=== PATIENT | female | born 1955 | race Caucasian/White ===

== ENCOUNTER 2017-10-14 13:29 | Outpatient (CLI) | payer OTHER | END 2017-10-14 13:30 | disposition home or self-care (01) | LOC: BICMAMMO 13:29 | PROVIDERS: ATTEND Obstetrics & Gynecology | DX: Z12.31 Encounter for screening mammogram for malignant neoplasm of breast (principal); N64.89 Other specified disorders of breast | CPT/HCPCS: 77063; 77067 ==

== ENCOUNTER → 2017-10-21 | Day surgery (SDC) | payer OTHER | LOC: BICULT 10:45 | PROVIDERS: ATTEND Obstetrics & Gynecology | DX: N60.02 Solitary cyst of left breast (principal); Z88.0 Allergy status to penicillin; Z88.1 Allergy status to other antibiotic agents | CPT/HCPCS: G0206-LT; G0279 ==

== ENCOUNTER 2018-10-06 12:54 | Outpatient (CLI) | payer OTHER ==
--- NOTE | 2018-10-06 15:19 | ULT ---
LEFT BREAST ULTRASOUND: COMPARISON: Mammogram 10/06/2018 and 10/21/2017. HISTORY: Tenderness in the lower outer quadrant of the left breast. TECHNIQUE: Multiplanar, wilson scale, and color Doppler images were obtained in a targeted ultrasound of the left breast. FINDINGS: There are numerous small anechoic cysts in the left breast. The largest measures approximately 5 mm in greatest dimension. No suspicious shadowing or suspicious mass is identified. IMPRESSION: BIRADS category 2 - benign findings. Annual screening mammography is recommended. POS: MATHEUS
== END 2018-10-06 12:55 | disposition home or self-care (01) ==
LOC: BICMAMMO 12:54
PROVIDERS: ATTEND Family Medicine
DX: N64.4 Mastodynia (principal)
CPT/HCPCS: 77066; G0279

== ENCOUNTER 2020-11-01 09:36 | Outpatient (CLI) | payer OTHER ==
--- NOTE | 2020-11-01 10:18 | ULT ---
Exam: Bilateral renal ultrasound HISTORY: Abdominal pain. Interstitial cystitis. Recurrent urinary tract infection COMPARISON: 01/08/2017 FINDINGS: Right kidney: Normal cortical echotexture. No hydronephrosis. Right kidney measurements: 10.6 x 3.7 x 4.1 cm. Left kidney: Normal cortical echotexture. No hydronephrosis Left kidney measurements 610.6 x 5.2 x 4.7 cm. Urinary bladder: Normal mucosa. IMPRESSION: No hydronephrosis.
== END 2020-11-01 09:37 | disposition home or self-care (01) ==
LOC: ULT 09:36
PROVIDERS: ATTEND Urology
DX: N30.10 Interstitial cystitis (chronic) without hematuria (principal); R10.2 Pelvic and perineal pain
CPT/HCPCS: 76770

== ENCOUNTER 2021-08-16 13:53 | Outpatient (CLI) | payer OTHER | END 2021-08-16 13:54 | disposition home or self-care (01) | LOC: TBSIIMAG 13:53 | PROVIDERS: ATTEND Specialist | DX: M51.17 Intervertebral disc disorders with radiculopathy, lumbosacral region (principal); M47.26 Other spondylosis with radiculopathy, lumbar region; M48.061 Spinal stenosis, lumbar region without neurogenic claudication; M89.9 Disorder of bone, unspecified | CPT/HCPCS: 72148 ==

== ENCOUNTER 2022-04-27 08:50 | Outpatient (CLI) | payer BC | END 2022-04-27 08:51 | disposition home or self-care (01) | LOC: BICMAMMO 08:50 | PROVIDERS: ATTEND Family Medicine | DX: Z12.31 Encounter for screening mammogram for malignant neoplasm of breast (principal); Z13.820 Encounter for screening for osteoporosis; N95.9 Unspecified menopausal and perimenopausal disorder; M81.0 Age-related osteoporosis without current pathological fracture | CPT/HCPCS: 77063; 77067; 77080 ==

== ENCOUNTER 2023-04-26 11:39 | Outpatient (CLI) | payer BC | END 2023-04-26 11:40 | disposition home or self-care (01) | LOC: SCSMRI 11:39 | PROVIDERS: ATTEND Psychiatry & Neurology Neurology | DX: H81.22 Vestibular neuronitis, left ear (principal); I67.82 Cerebral ischemia; Q04.8 Other specified congenital malformations of brain; Z98.890 Other specified postprocedural states | CPT/HCPCS: 70553 ==

== ENCOUNTER 2024-10-23 07:47 | Outpatient (CLI) | payer MEDICARE | END 2024-10-23 07:48 | disposition home or self-care (01) | LOC: SCSMRI 07:47 | PROVIDERS: ATTEND Specialist | DX: M47.26 Other spondylosis with radiculopathy, lumbar region (principal) | CPT/HCPCS: 72148 ==